=== PATIENT | male | born 1955 | race Two or more races ===

== ENCOUNTER 2024-03-22 14:15 | Inpatient (IN) | payer OTHER, MEDICAID ==
[~2024-03-22] VITALS: Ht 160 cm; Wt 68.0 kg
[2024-03-22 14:36] LABS: Eosinophils # (auto) 0.1 10 ^3/uL (0-0.8); Monocytes # (auto) 0.4 10 ^3/uL (0-1.3); Monocytes % (auto) 4.9 % (0.0-12.0); White Blood Cell 8.3 10^3/uL (4.4-10.8)
[2024-03-22 14:38] LABS: Basophils # (auto) 0 10 ^3/uL (0-0.2); Basophils % (auto) 0.5 % (0.0-2.0); Eosinophils % (auto) 1.6 % (0.0-7.0); Hematocrit 30.5 % (41.0-53.0); Hemoglobin 9.8 g/dL (13.5-17.5); Lymphocytes # (auto) 1.1 10 ^3/uL (0.4-5.4); Lymphocytes % (auto) 12.9 % (10.0-50.0); Mean Corpuscular Hemoglobin 24.6 pg (28.0-32.0); Mean Corpuscular Hgb Conc. 32.2 g/dL (32.0-36.0); Mean Corpuscular Volume 76.5 fL (80.0-100.0); Neutrophils # (auto) 6.6 10 ^3/uL (1.6-8.6); Neutrophils % (auto) 80.1 % (37.0-80.0); Nucleated Red Blood Cells % 0.1 %; Red Blood Cells 3.99 10^6/uL (4.5-5.90); Red Cell Distribution Width 18.3 % (11.8-14.3)
[2024-03-22 14:49] LABS: Alanine Aminotransferase 26 U/L (7-40); Albumin 4.3 g/dL (3.2-4.8); Alkaline Phosphatase 122 U/L (46-116); Anion Gap 8 (5-15); Aspartate Aminotransferase 30 U/L (13-40); BUN/Creatinine Ratio 11.4 (10.0-20.0); Blood Urea Nitrogen 31 mg/dL (9-23); Calcium 9.6 mg/dL (8.7-10.4); Carbon Dioxide 23 mmol/L (20-30); Chloride 109 mmol/L (98-107); Glucose 144 mg/dL (74-106); Potassium 4.5 mmol/L (3.5-5.1); Sodium 140 mmol/L (136-145)
[2024-03-22 14:50] LABS: Bilirubin, Total 1.1 mg/dL (0.2-1.0); Total Protein 6.8 g/dL (5.7-8.2)
[2024-03-22] MEDS ORDERED: ACETAMINOPHEN 325 MG TAB PO PRN (16:15)
[2024-03-22] MEDS ORDERED: DOCUSATE SOD 100 MG CAP PO PRN (16:15)
[2024-03-22] MEDS ORDERED: NITROGLYCERIN 0.4 MG SL TAB SL PRN (16:15)
[2024-03-22] MEDS ORDERED: MORPHINE SULFATE INJ 2 MG/ml SYRG IV PRN (16:15)
[2024-03-22] MEDS ORDERED: ONDANSETRON HCL 4 MG/2 ML VIAL IV PRN (16:15)
[2024-03-22] MEDS: FUROSEMIDE 40 MG/4 ML VIAL IV ONE (16:23)
[2024-03-22] MEDS: HYDROmorphone HCL 2 MG/ML VL/or syr IV PRN (17:35)
[2024-03-22 19:10] VITALS: RESP 12; O2SAT 99
[2024-03-22] MEDS ORDERED: METO-158 PO (19:15)
[2024-03-22] MEDS ORDERED: BENA10TA90 PO (19:15)
[2024-03-22] MEDS ORDERED: PROM25TA10 PO (19:15)
[2024-03-22] MEDS ORDERED: WARF-111 PO (19:15)
[2024-03-22] MEDS ORDERED: MORP30TA PO (19:15)
[2024-03-22] MEDS ORDERED: AML5T PO (19:15)
[2024-03-22] MEDS ORDERED: HYDR-4798 PO (19:15)
[2024-03-22 21:00] VITALS: BP 148/92; PULSE 99; RESP 21; O2SAT 99
[2024-03-22] MEDS ORDERED: hydrOXYzine 25 MG TAB or CAP PO PRN (21:00)
[2024-03-22] MEDS: FUROSEMIDE 40 MG/4 ML VIAL IV SCH (21:07)
[2024-03-22] MEDS: SODIUM CHLOR 0.9% PF (SALINE LOCK) 10ML VIAL/SYR IV SCH (21:08)
== END 2024-03-22 21:40 | disposition left against medical advice (07) | DRG 291 ==
LOC: ER 14:15 → TELE 16:21
PROVIDERS: ADMIT Internal Medicine; ATTEND Internal Medicine
DX: I13.0 Hypertensive heart and chronic kidney disease with heart failure and stage 1 through stage 4 chronic kidney disease, or unspecified chronic kidney disease (principal); I50.23 Acute on chronic systolic (congestive) heart failure; N17.9 Acute kidney failure, unspecified; I24.9 Acute ischemic heart disease, unspecified; N18.9 Chronic kidney disease, unspecified; Z53.29 Procedure and treatment not carried out because of patient's decision for other reasons
CPT/HCPCS: 36415; 71046; 76775; 80053; 83605; 83735; 83880; 84484; 85025; 93005; 96374; G0378